=== PATIENT | male | born 1965 | race Caucasian/White ===

== ENCOUNTER 2019-10-18 12:46 | Emergency (ER) | payer MEDICARE ==
[~2019-10-18] VITALS: Ht 185.4 cm; Wt 97.5 kg
[~2019-10-18 12:46] MED LIST: ALBU90OI INH; AMOCLA500; AMOCLA875 PO; ASPI325 PO; BUPR75; ESCI20 PO; ESCI5; EXTRA STRENGTH500 MG PO; IBUP600 PO; OXYC5 PO; PRED5; PRIM50 PO; PROMETH-CODEIN 65 ML PO; TRAZ50
[2019-10-18 14:03] LABS: BASOPHILS ABSOLUTE AUTO 0.03 K/mm3 (0.00-0.23); BASOPHILS PERCENT AUTO 0 % (0-2); EOSINOPHILS ABSOLUTE AUTO 0.08 K/mm3 (0.00-0.68); EOSINOPHILS PERCENT AUTO 1 % (0-6); Hematocrit 45.5 % (37.0-53.0); IMMATURE GRAN ABSOLUTE AUTO 0.02 K/mm3 (0.00-0.10); IMMATURE GRAN PERCENT AUTO 0 % (0-1); LYMPHOCYTES ABSOLUTE AUTO 1.64 K/mm3 (0.84-5.20); LYMPHOCYTES PERCENT AUTO 16 % (21-46); MONOCYTES ABSOLUTE AUTO 0.78 K/mm3 (0.16-1.47); MONOCYTES PERCENT AUTO 8 % (4-13); Mean Corpuscular HGB 31.7 pg (26.0-34.0); Mean Corpuscular Volume 96 fL (80-100); NEUTROPHILS ABSOLUTE AUTO 7.61 K/mm3 (1.96-9.15); NEUTROPHILS PERCENT AUTO 75 % (41-73); Platelet Count 244 K/mm3 (150-400); RDW Coefficient Variation 12.9 % (11.7-14.2); RDW Standard Deviation 46.3 fL (35.1-46.3); Red Blood Cell Count 4.73 M/mm3 (4.30-5.90); White Blood Cell Count 10.16 K/mm3 (4.00-11.30)
[2019-10-18 14:24] LABS: Alanine Aminotransfer (ALT/SGP 25 U/L (12-78); Albumin, Blood 3.6 g/dL (3.4-5.0); Albumin/Globulin Ratio 0.9 (0.8-1.8); Alk Phos 43 U/L (50-136); Anion Gap 5 mmol/L (6-16); Aspartate Aminotrans (AST/SGOT 15 U/L (12-37); Bilirubin, Total 0.5 mg/dL (0.1-1.0); Blood Urea Nitrogen 11 mg/dL (8-24); Bun/Creatinine Ratio 10.1 (12.0-20.0); CO2, Blood 28 mmol/L (21-32); Calcium, Blood 9.2 mg/dL (8.5-10.1); Chloride, Blood 105 mmol/L (98-108); Creatinine, Blood 1.09 mg/dL (0.60-1.20); Globulin, Blood 3.8 g/dL (2.2-4.0); Glomerular Filtration Rate >60 (60-); Glucose, Blood 97 mg/dL (70-99); Sodium, Blood 138 mmol/L (136-145); Total Protein, Blood 7.4 g/dL (6.4-8.2)
[2019-10-18] MEDS ORDERED: Augmentin 875-1 EACH PO (15:23)
== END 2019-10-18 16:10 | disposition home or self-care (01) ==
LOC: ER 12:46
PROVIDERS: Nurse Practitioner
DX: K52.9 Noninfective gastroenteritis and colitis, unspecified (principal)
CPT/HCPCS: 36415; 74177; 80053; 83690; 85025; 99284-25; Q9967

== ENCOUNTER 2020-12-21 07:47 | Day surgery (SDC) | payer MEDICARE ==
[~2020-12-21] VITALS: Ht 185.4 cm; Wt 103.6 kg
[~2020-12-21 07:47] MED LIST changes: +Augmentin 875-1 EACH PO
--- NOTE | 2020-12-21 08:39 | NUR ---
Ambulatory in Day Surgery History, Chart, Medications and Allergies reviewed before start of procedure. Lungs clear T/O to Auscultation. Patient confirms NPO status and agrees with scheduled surgery. Pre-Op teaching done. Pt verbalizes understanding. Patient States Post-Procedure ride home has been arranged.
--- NOTE | 2020-12-21 09:32 | NUR ---
12/21/20 0932 Carroll Vargas History, Chart, Medications and Allergies reviewed before start of procedure. MONITOR INTACT WITH CONTINUOUS PULSE OXIMETRY AND INTERMITTENT BP. 3-LEAD EKG REVIEWED WITH PHYSICIAN PRIOR TO START OF PROCEDURE. O2 VIA N/C INTACT THROUGHOUT SEDATION/PROCEDURE. PATIENT DETERMINED TO BE ASA APPROPRIATE FOR PROPOFOL SEDATION PRIOR TO START OF PROCEDURE BY DR. MARTIN.
--- NOTE | 2020-12-21 10:26 | NUR ---
ALL DC INSTRUCTIONS GONE OVER, ALL QUESTIONS ANSWERED. KANDACE PO FLUIDS WELL.
== END 2020-12-21 10:30 | disposition home or self-care (01) ==
LOC: ORSCMMR 07:47 → ORD 09:00 → ORSCMMR 09:00
PROVIDERS: Internal Medicine Gastroenterology
PROC: 0DBN8ZX Excision of Sigmoid Colon, Via Natural or Artificial Opening Endoscopic, Diagnostic (ICD-10-PCS; principal; 2020-12-21 09:00)
DX: Z12.11 Encounter for screening for malignant neoplasm of colon (principal); D12.5 Benign neoplasm of sigmoid colon
CPT/HCPCS: 88305; J2704; J7120

== ENCOUNTER 2022-03-29 12:00 | Observation (INO) | payer MEDICARE ==
[~2022-03-29] VITALS: Ht 185.4 cm; Wt 101.6 kg
[2022-03-29 12:49] LABS: BASOPHILS ABSOLUTE AUTO 0.03 K/mm3 (0.00-0.23); BASOPHILS PERCENT AUTO 0 % (0-2); EOSINOPHILS ABSOLUTE AUTO 0.01 K/mm3 (0.00-0.68); EOSINOPHILS PERCENT AUTO 0 % (0-6); Hematocrit 45.2 % (37.0-53.0); Hemoglobin 15.4 g/dL (13.5-17.5); IMMATURE GRAN ABSOLUTE AUTO 0.04 K/mm3 (0.00-0.10); IMMATURE GRAN PERCENT AUTO 0 % (0-1); LYMPHOCYTES ABSOLUTE AUTO 1.08 K/mm3 (0.84-5.20); LYMPHOCYTES PERCENT AUTO 8 % (21-46); MONOCYTES ABSOLUTE AUTO 0.52 K/mm3 (0.16-1.47); MONOCYTES PERCENT AUTO 4 % (4-13); Mean Corpuscular HGB 32.2 pg (26.0-34.0); Mean Corpuscular HGB Conc 34.1 g/dL (31.5-36.5); Mean Corpuscular Volume 94 fL (80-100); Mean Platelet Volume 10.4 fL (9.1-12.4); NEUTROPHILS ABSOLUTE AUTO 11.81 K/mm3 (1.96-9.15); NEUTROPHILS PERCENT AUTO 88 % (41-73); Platelet Count 290 K/mm3 (150-400); RDW Standard Deviation 45.8 fL (35.1-46.3); Red Blood Cell Count 4.79 M/mm3 (4.30-5.90); White Blood Cell Count 13.49 K/mm3 (4.00-11.30)
[2022-03-29 13:02] LABS: Albumin, Blood 4.2 g/dL (3.4-5.0); Albumin/Globulin Ratio 1.1 (0.8-1.8); Bilirubin, Total 0.7 mg/dL (0.1-1.0); Bun/Creatinine Ratio 10.3 (12.0-20.0); Calcium, Blood 9.5 mg/dL (8.5-10.1); Creatinine, Blood 1.17 mg/dL (0.60-1.20); Globulin, Blood 3.9 g/dL (2.2-4.0); Total Protein, Blood 8.1 g/dL (6.4-8.2)
[2022-03-29 16:52] LABS: Source, Urine Clean Catch
[2022-03-29 16:55] LABS: Appearance, Urine Cloudy (Clear); Bilirubin, Urine Neg (Neg); Blood, Urine 5+ (Neg); Color, Urine Amber (P-Yellow); Glucose Qualitative, Urine Neg (Neg); Ketones, Urine 2+ (Neg); Leukocyte Esterase, Urine 3+ (Neg); Nitrite, Urine Neg (Neg); Protein, Urine 2+ (Neg); Urobilinogen, Urine NORM (Normal)
[2022-03-29 17:01] LABS: Red Blood Cells, Urine TNTC /hpf (0-2); White Blood Cells, Urine TNTC /hpf (0-5)
[2022-03-29 17:02] LABS: Bacteria Many /hpf; Squamous Epithelial Cells Not Seen /hpf (Few)
--- NOTE | 2022-03-30 02:55 | NUR ---
ADMISSION PT WAS ADMITTED TO THIS UNIT FROM THE ER AT APPROX 2130. RCVD REPORT FROM [facility] IN ER. PT ADMITTED FOR URNINARY TRACT OBSTRUCTION. WHEN PT WAS IN THE ER HE HAD 8-9/10 FLANK PAIN AND ASSOCIATED N/V. PT WAS GIVEN MORPHINE AND HIS PAIN SUBSIDED TO 3/10 AND N/V RESOLVED. PT IS AOX4, INDEPENDANT IN THE ROOM, COOPERATIVE WITH CARE. PLAN IS FOR DR. WEAVER TO SEE PT TOMORROW AND FOR A STENT TO BE SURGICALLY PLACED. VSS, WILL CTM.
[2022-03-30 04:50] LABS: BASOPHILS ABSOLUTE AUTO 0.02 K/mm3 (0.00-0.23); BASOPHILS PERCENT AUTO 0 % (0-2); EOSINOPHILS ABSOLUTE AUTO 0.03 K/mm3 (0.00-0.68); EOSINOPHILS PERCENT AUTO 0 % (0-6); Hematocrit 38.6 % (37.0-53.0); Hemoglobin 12.8 g/dL (13.5-17.5); IMMATURE GRAN ABSOLUTE AUTO 0.03 K/mm3 (0.00-0.10); IMMATURE GRAN PERCENT AUTO 0 % (0-1); LYMPHOCYTES ABSOLUTE AUTO 1.85 K/mm3 (0.84-5.20); LYMPHOCYTES PERCENT AUTO 16 % (21-46); MONOCYTES ABSOLUTE AUTO 1.15 K/mm3 (0.16-1.47); MONOCYTES PERCENT AUTO 10 % (4-13); Mean Corpuscular HGB 31.9 pg (26.0-34.0); Mean Corpuscular HGB Conc 33.2 g/dL (31.5-36.5); Mean Corpuscular Volume 96 fL (80-100); Mean Platelet Volume 10.5 fL (9.1-12.4); NEUTROPHILS ABSOLUTE AUTO 8.71 K/mm3 (1.96-9.15); NEUTROPHILS PERCENT AUTO 74 % (41-73); Platelet Count 211 K/mm3 (150-400); RDW Coefficient Variation 13.1 % (11.7-14.2); RDW Standard Deviation 46.7 fL (35.1-46.3); Red Blood Cell Count 4.01 M/mm3 (4.30-5.90); White Blood Cell Count 11.79 K/mm3 (4.00-11.30)
[2022-03-30 05:09] LABS: Calcium, Blood 8.2 mg/dL (8.5-10.1); Creatinine, Blood 1.17 mg/dL (0.60-1.20)
--- NOTE | 2022-03-30 05:22 | NUR ---
SHIFT SUMMARY PT ARRIVED TO THE UNIT TODAY WITH A DX OF URINARY OBSTRUCTION. A KIDNEY STONE IS OBSTRUCTING HIS L KIDNEY AND CAUSED INTENSE PAIN, N/V EARLY TODAY. AT THE ER HIS PAIN WAS CONTROLLED WITH MORPHENE AND HE HASN'T C/O OF PAIN SINCE, STATING THE DISCOMFORT IN HIS SIDE HAS REMAINED 2-3/10. PT HAD A CRITICAL LACTIC ACID VALUE IN THE ER, RECENT LABS SHOW IT IN THE NORMAL RANGE. PT IS RECIEVING CONTINUOUS LR AND IV ABX. PT WAS ABLE TO SLEEP COMFORTABLY T/O MOST OF THE SHIFT.
[2022-03-30] MEDS ORDERED: VISBIOME 112.51 EACH PO (14:08)
[2022-03-30] MEDS ORDERED: CEFP200 PO (14:08)
[2022-03-30] MEDS ORDERED: POTASSIUM CITRA5 M10 PO (14:09)
[2022-03-30] MEDS ORDERED: Flomax0.4 MG PO (14:09)
--- NOTE | 2022-03-30 14:54 | NUR ---
DISCHARGE DISCHARGE INSTRUCTIONS AND FOLLOW UP APPOINTMENT REVIEWED WITH PT. QUESTIONS/CONCERNS ANSWERED. PT VERBALLY INDICATED UNDERSTANDING OF RECEIVED INSTRUCTIONS. PHARMACIST DORINA REVIEWED MEDICATIONS WITH PT. PT ESCORTED OUT BY [facility]
== END 2022-03-30 14:45 | disposition home or self-care (01) ==
LOC: ER 12:00 → MEDS 12:02 → ER 19:59 → MEDS 19:59 → ERHOLD 19:59 → ER 21:06 → ERHOLD 21:10 → MEDS 21:10
PROVIDERS: Physician Assistant; ADMIT Family Medicine
DX: N13.6 Pyonephrosis (principal); Z91.041 Radiographic dye allergy status; A41.9 Sepsis, unspecified organism; R65.20 Severe sepsis without septic shock; R00.0 Tachycardia, unspecified
CPT/HCPCS: 36415; 74176; 80048; 80053; 81001; 83605; 83690; 84484; 85025; 87077; 87086; 87186; 93005; 93010; 96365; 96375; 96376; 99285-25; A9270; G0378; J0696; J0744; J1885; J2270; J2405; J7030; J7120

== ENCOUNTER → 2025-04-15 | Outpatient (CLI) | payer MEDICARE ==
[~2025-04-15] MED LIST changes: +CEFP200 PO; +Flomax0.4 MG PO; +POTASSIUM CITRA5 M10 PO; +VISBIOME 112.51 EACH PO
== END ==
LOC: LAB SHORT 12:29 → LAB 12:29
DX: L82.0 Inflamed seborrheic keratosis (principal); D48.5 Neoplasm of uncertain behavior of skin
CPT/HCPCS: 88305